=== PATIENT | male | born 1980 | race Asian ===

== ENCOUNTER 2017-03-03 03:00 | Emergency (ER) | payer OTHER | END 2017-03-03 03:20 | disposition home or self-care (01) | DX: H66.003 Acute suppurative otitis media without spontaneous rupture of ear drum, bilateral (principal); F17.200 Nicotine dependence, unspecified, uncomplicated ==

== ENCOUNTER 2017-03-03 03:07 | Outpatient (CLI) | payer OTHER | END 2017-03-03 03:08 | disposition home or self-care (01) | DX: Z01.89 Encounter for other specified special examinations (principal) ==